=== PATIENT | male | born 1990 | race Caucasian/White ===

== ENCOUNTER → 2018-05-26 | Outpatient (CLI) | payer OTHER ==
--- NOTE | 2018-05-26 09:14 | RADIOLOGY REPORT (SQ) ---
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 TECHNIQUE: Realtime and static grayscale images acquired. Selected color Doppler, velocities and spe ctral images recorded. LIMITATIONS: Renal artery origins off the aorta are difficult to visualize due to midline bowel gas FINDINGS: RIGHT KIDNEY: RENAL ARTERY VELOCITIES: 53 cm/sec. Segmental artery velocity 43 cm/sec. RENAL VEIN: Color doppler flow present, patent. VELOCITY RATIO: 0.3. Normal waveforms. KIDNEY: Right kidney is 11 cm in length. No significant pathology. LEFT KIDNEY: RENAL ARTERY VELOCITIES: 62 cm/sec. Segmental artery velocity 45 cm/sec. RENAL VEIN: Color doppler flow present, patent. VELOCITY RATIO: 0.4. Normal waveforms. KIDNEY: Left kidney is 11 cm in length. No significant pathology. BLADDER: Normal, bilateral ureteral jets are identified OTHER: No other significant finding. IMPRESSION: NO DOPPLER EVIDENCE OF HEMODYNAMICALLY SIGNIFICANT RENAL ARTERY STENOSIS. COMMENT: NORMAL RENAL ARTERY/AORTA VELOCITY RATIO IS LESS THAN OR EQUAL TO 3.5. TECHNICAL DOCUMENTATION: JOB ID: [id number] [employer]- All Rights Reserved Reading location - IP/workstation name: [facility]
--- NOTE | 2018-05-26 09:14 | RADIOLOGY REPORT (SQ) ---
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 TECHNIQUE: Realtime and static grayscale images acquired. Selected color Doppler, velocities and spe ctral images recorded. LIMITATIONS: Renal artery origins off the aorta are difficult to visualize due to midline bowel gas FINDINGS: RIGHT KIDNEY: RENAL ARTERY VELOCITIES: 53 cm/sec. Segmental artery velocity 43 cm/sec. RENAL VEIN: Color doppler flow present, patent. VELOCITY RATIO: 0.3. Normal waveforms. KIDNEY: Right kidney is 11 cm in length. No significant pathology. LEFT KIDNEY: RENAL ARTERY VELOCITIES: 62 cm/sec. Segmental artery velocity 45 cm/sec. RENAL VEIN: Color doppler flow present, patent. VELOCITY RATIO: 0.4. Normal waveforms. KIDNEY: Left kidney is 11 cm in length. No significant pathology. BLADDER: Normal, bilateral ureteral jets are identified OTHER: No other significant finding. IMPRESSION: NO DOPPLER EVIDENCE OF HEMODYNAMICALLY SIGNIFICANT RENAL ARTERY STENOSIS. COMMENT: NORMAL RENAL ARTERY/AORTA VELOCITY RATIO IS LESS THAN OR EQUAL TO 3.5. TECHNICAL DOCUMENTATION: JOB ID: [id number] [employer]- All Rights Reserved Reading location - IP/workstation name: [facility]
== END ==
LOC: RAD 07:35
PROVIDERS: ATTEND Internal Medicine Clinical Cardiac Electrophysiology
DX: I70.1 Atherosclerosis of renal artery (principal)
CPT/HCPCS: 76770; 93976